=== PATIENT | male | born 1965 | race Caucasian/White ===

== ENCOUNTER 2019-04-02 12:34 | Observation (INO) | payer BC, OTHER ==
[~2019-04-02] VITALS: Ht 172.7 cm; Wt 112.5 kg
[~2019-04-02 12:34] MED LIST: CANA100T PO; GLIP5TAB4 PO; METO25TE2 PO
[2019-04-02 12:41] VITALS: BP 147/77
[2019-04-02] MEDS ORDERED: SODIUM CHLORIDE FLUSH 10 ML SYR IVF STA (12:43)
[2019-04-02] MEDS ORDERED: NITROGLYCERIN 0.4 MG TAB SL STA (12:43)
--- NOTE | 2019-04-02 12:55 | NUR ---
Pt w/c assisted to bed 1.
--- NOTE | 2019-04-02 13:05 | NUR ---
53/M C/O LEFT CHEST RADIATING TO LT POSTERIOR BACK X5 DAYS. PT DENIES SOB BUT DOES STATE INCREASED CP WITH DEEP INSPIRATION. PAIN HAS BEEN INTERMITTENT, NO EXACERBATION OR RELIEVING FACTORS. DENIES N/V, DIAPHORESIS. ERYTHEMATOUS RASH NOTED TO LT THORACIC ANTERIORLY AND POSTERIORLY. DOES NOT CROSS THE MIDLINE. STATES "I DON'T KNOW KNOW IF AN ANIMAL BIT ME BUT I DIDN'T SEE ANY ANIMAL". DENIES NUMBNESS, TINGLING, STABBING PAIN. JUST DESCRIBES PAIN SEVERE. HX HTN, DM, HIGH CHOLESTEROL
--- NOTE | 2019-04-02 13:56 | NUR ---
BLOOD DRAW AND URINE SAMPLE PICKED UP BY SWITCH TECHNICIAN.
[2019-04-02 14:17] LABS: APPEARANCE,URINE CLEAR (CLEAR); BILIRUBIN,URINE NEGATIVE (NEGATIVE); BLOOD, URINE NEGATIVE (NEGATIVE); COLOR,URINE YELLOW (YELLOW); LEUKOCYTE ESTERASE ,URINE NEGATIVE (NEGATIVE); NITRITE, URINE NEGATIVE (NEGATIVE); PH,URINE 5.5 (5.0-9.0); UGLUCOSE 3+ (NEGATIVE)
[2019-04-02 14:38] LABS: PROTHROMBIN TIME 9.8 secs (10.8-13.4)
[2019-04-02 14:40] LABS: D-DIMER < 100 ng/ml (0-400)
[2019-04-02] MEDS ORDERED: ATEN25TA7 PO (14:41)
[2019-04-02] MEDS ORDERED: SIMV40TA1 PO (14:41)
[2019-04-02 14:58] LABS: BARBITURATE, URINE NEGATIVE ng/ml (NEG <=200); BENZODIAZEPINE, URINE NEGATIVE ng/mL (NEG <=200); CANNABINOID, URINE NEGATIVE ng/mL (NEG <=50); COCAINE, URINE NEGATIVE ng/mL (NEG <=300); OPIATE, URINE NEGATIVE ng/mL (NEG <=2000); PHENCYCLIDINE SCREEN,URINE NEGATIVE ng/mL (NEG <=25)
[2019-04-02 15:29] LABS: BASOPHILS # (AUTO) 0.1 K/uL (0.00-0.22); BASOPHILS % (AUTO) 1.3 % (0.0-2.0); EOSINOPHILS # (AUTO) 0.2 K/uL (0-0.4); EOSINOPHILS % (AUTO) 2.9 % (0.0-4.0); HEMATOCRIT 51.1 % (36-52); HEMOGLOBIN 17.3 g/dL (12.0-18.0); LYMPHOCYTES # (AUTO) 2.1 K/uL (2.0-11.5); LYMPHOCYTES % (AUTO) 29.1 % (20.5-51.1); MEAN CORPUSCULAR HEMOGLOBIN 30 pg (27-31); MEAN CORPUSCULAR HGB CONC 34 g/dL (33-37); MEAN CORPUSCULAR VOLUME 87.2 fL (80-94); MONOCYTES # (AUTO) 1.2 K/uL (0.8-1.0); MONOCYTES % (AUTO) 15.8 % (1.7-9.3); NEUTROPHILS # (AUTO) 3.7 K/uL (1.8-7.7); NEUTROPHILS % (AUTO) 50.9 % (42.2-75.2); PLATELET COUNT (AUTO) 319 K/uL (140-450); RED BLOOD CELL COUNT(AUTO) 5.86 MIL/uL (4.20-6.10); RED CELL DISTRIBUTION WIDTH 12.9 % (11.6-13.7); WHITE BLOOD COUNT (AUTO) 7.4 K/uL (4.8-10.8)
--- NOTE | 2019-04-02 15:30 | NUR ---
ATTEMPTED TO CALL LAB REGARDINING CMP. NO ANSWER AT THIS TIME.
[2019-04-02 16:32] LABS: ANION GAP 17.8 (8-16); CARBON DIOXIDE 22.2 mmol/L (21-32); CREATININE 1.1 mg/dL (0.7-1.3)
--- NOTE | 2019-04-02 16:32 | NUR ---
NOTIFIED DR. APPLE PT C/O PAIN WOULD LIKE PAIN MED.
[2019-04-02] MEDS ORDERED: hydrOXYzine HCL 25 MG TAB PO ONE (16:35)
[2019-04-02] MEDS ORDERED: MORPHINE SULFATE 4 MG/ML SYR IVP ONE (16:35)
[2019-04-02] MEDS ORDERED: ONDANSETRON 4 MG/2 ML VIAL IVP ONE (16:35)
[2019-04-02] MEDS ORDERED: ACYCLOVIR 200 MG CAP PO ONE (16:35)
--- NOTE | 2019-04-02 16:35 | NUR ---
CALLED PCP JESSI MONTANA [phone] TO NOTIFY OF ADMISSION PER PT REQUEST. UNABLE TO DO SO; CLINIC CLOSED.
[2019-04-02 16:40] LABS: ALBUMIN 3.4 g/dL (3.4-5.0)
--- NOTE | 2019-04-02 18:05 | NUR ---
Patient will be admitted to care of DR. ESQUIVEL. Admited to TELE. Will go to room 113. Belongings list completed. Report to BERNADETTE ANTUNEZ.
--- NOTE | 2019-04-02 18:30 | NUR ---
PATIENT ARRIVED ON UNIT FROM ER. ABLE TO AMBULATE FROM ER BED TO [facility] BED. HAS LEFT CHEST RASH, NO VESICLES, NO CRUSTING, THAT IS FOLLOW A DERMATOME LINE. RASH ALSO PRESENT ON LEFT UPPER BACK, NO VESICLES, NO CRUSTING. PAINFUL UPON TOUCHING PER PATIENT REPORTS. DENIES PAIN AT THIS TIME. AAOX4, CALM, COOPERATIVE, SKIN COLOR APPROPRIATE TO ETHNICITY, WARM TO TOUCH. IV SITE INTACT, PATENT, AND SALINE LOCK. ORIENTED PATIENT TO ROOM AND CALL LIGHT. REVIEWED PLAN OF CARE WITH PATIENT. PATIENT VERBALIZED UNDERSTANDING. SAFETY MEASURES IN PLACE, CALL LIGHT WITHIN REACH. WILL CONTINUE TO MONITOR.
[2019-04-02] MEDS ORDERED: MORPHINE SULFATE 2 MG/ML SYR IVP PRN (18:50)
[2019-04-02] MEDS ORDERED: DEXTROSE 50% 50 ML SYR IVP PRN (18:50)
[2019-04-02] MEDS ORDERED: ACETAMINOPHEN 325 MG TAB PO PRN (18:50)
[2019-04-02] MEDS ORDERED: ONDANSETRON 4 MG/2 ML VIAL IVP PRN (18:50)
[2019-04-02] MEDS ORDERED: INSULIN LISPRO SLIDING SCALE 100 UNITS/ML VIAL SUBQ PRN (18:50)
[2019-04-02] MEDS ORDERED: NACL 0.9% 1,000 ML IV SCH (19:00)
--- NOTE | 2019-04-02 19:39 | NUR ---
GAVE REPORT TO COAL BRIQUETTE MACHINE OPERATOR NURSE FOR CONTINUITY OF CARE. PATIENT IN STABLE CONDITION.
--- NOTE | 2019-04-02 19:40 | NUR ---
RECEIVED REPORT FROM AM SHIFT NURSE. PATIENT ALERT AND ORIENTED X4. [place] SPEAKING BUT UNDERSTANDS AND SPEAKS TURKISH. NOTED WITH RASH ON LEFT CHEST AND LEFT UPPER BACK. NO VESICLES AND NO CRUSTING NOTED. DENIES PAIN NOR DISCOMFORT AT THIS TIME. PATIENT CALM AND COOPERATIVE. IV PATENT AND INTACT ON LEFT AC 20G. SALINE LOCKED. BED ON LOW POSITION. CALL LIGHT WITHIN REACH. INTRODUCED SELF AND UPDATED BOARD. SAFETY MEASURES IN PLACE. AMBULATORY TO THE BATHROOM. WILL CONTINUE TO MONITOR. PATIENT ARRIVED ON UNIT FROM ER. ABLE TO AMBULATE FROM ER BED TO [facility] BED. HAS LEFT CHEST RASH, NO VESICLES, NO CRUSTING, THAT IS FOLLOW A DERMATOME LINE. RASH ALSO PRESENT ON LEFT UPPER BACK, NO VESICLES, NO CRUSTING. PAINFUL UPON TOUCHING PER PATIENT REPORTS. DENIES PAIN AT THIS TIME. AAOX4, CALM, COOPERATIVE, SKIN COLOR APPROPRIATE TO ETHNICITY, WARM TO TOUCH. IV SITE INTACT, PATENT, AND SALINE LOCK. ORIENTED PATIENT TO ROOM AND CALL LIGHT. REVIEWED PLAN OF CARE WITH PATIENT. PATIENT VERBALIZED UNDERSTANDING. SAFETY MEASURES IN PLACE, CALL LIGHT WITHIN REACH. WILL CONTINUE TO MONITOR. Addendum: 04/02/19 at 8949 by Ta Tavares RN DISREGARD NOTE. NOTE INCOMPLETE.
--- NOTE | 2019-04-02 19:41 | NUR ---
RECEIVED REPORT FROM AM SHIFT NURSE. PATIENT ALERT AND ORIENTED X4. [place] SPEAKING BUT UNDERSTANDS AND SPEAKS [place]. NOTED WITH RASH ON LEFT CHEST AND LEFT UPPER BACK. NO VESICLES AND NO CRUSTING NOTED. DENIES PAIN NOR DISCOMFORT AT THIS TIME. PATIENT CALM AND COOPERATIVE. IV PATENT AND INTACT ON LEFT AC 20G. SALINE LOCKED. BED ON LOW POSITION. CALL LIGHT WITHIN REACH. INTRODUCED SELF AND UPDATED BOARD. SAFETY MEASURES IN PLACE. AMBULATORY TO THE BATHROOM. WILL CONTINUE TO MONITOR.
[2019-04-02 20:00] VITALS: BP 114/69
[2019-04-02] MEDS: BLOOD GLUCOSE MONITORING 1 DEV DEV FS SCH (20:22)
[2019-04-02] MEDS: HYDROcodone/APAP 7.5/325 MG 1 TAB PO PRN (20:23)
[2019-04-02] MEDS: ACYCLOVIR 200 MG CAP PO SCH (20:23)
--- NOTE | 2019-04-02 21:10 | NUR ---
PT SEEN BY RT. ASSESSMENT: HR 86, RR 16, SPO2 97% ON ROOM AIR, AND CLEAR BREATH SOUNDS. PT SAID HE HAS NO QUE AND REFUSED CPAP AFTER EXPLAINING THE IMPORTANCE OF THE DEVICE.
[2019-04-02] MEDS ORDERED: diphenhydrAMINE 50 MG CAP PO ONE (21:20)
--- NOTE | 2019-04-02 21:35 | NUR ---
ROUNDS DONE. PATIENT WATCHING TV. NO APPARENT DISTRESS NOTED. BED ON LOW POSITION. CALL LIGHT BUCK FISHER. WILL CONTINUE TO MONITOR.
[2019-04-02 22:37] LABS: CREATINE KINASE MB 0.4 ng/mL (0-3.6)
--- NOTE | 2019-04-02 23:30 | NUR ---
PATIENT AWAKE IN BED, WATCHING TV. NO RESPIRATORY DISTRESS NOTED. BED ON LOW POSITION. CALL LIGHT WITHIN REACH. WILL CONTINUE TO MONITOR.
[2019-04-03] VITALS: BP 117/70
--- NOTE | 2019-04-03 01:27 | NUR ---
ROUNDS DONE. PATIENT ASLEEP IN BED. NO APPARENT DISTRESS NOTED. VISIBLE CHEST RISE AND FALL NOTED. BED ON LOW POSITION. CALL LIGHT WITHIN REACH. WILL CONTINUE TO MONITOR.
[2019-04-03] MEDS: HYDROcodone/APAP 7.5/325 MG 1 TAB PO PRN ×2 (02:57→08:31)
--- NOTE | 2019-04-03 03:20 | NUR ---
PATIENT ASLEEP IN BED. NO DISTRESS NOTED. VISIBLE CHEST RISE AND FALL NOTED. BED ON LOW POSITION. CALL LIGHT WITHIN REACH. WILL CONTINUE TO MONITOR.
[2019-04-03 04:00] VITALS: BP 116/60
--- NOTE | 2019-04-03 05:09 | NUR ---
PATIENT ASLEEP IN BED. NO DISTRESS NOTED. VISIBLE CHEST RISE AND FALL NOTED. BED ON LOW POSITION. CALL LIGHT WITHIN REACH. WILL CONTINUE TO MONITOR.
[2019-04-03] MEDS: BLOOD GLUCOSE MONITORING 1 DEV DEV FS SCH (05:53)
--- NOTE | 2019-04-03 06:29 | NUR ---
ROUNDS DONE. PATIENT AWAKE IN BED, RESTING. DENIES PAIN NOR DISCOMFORT. NO APPARENT DISTRESS NOTED. BED ON LOW POSITION. CALL LIGHT WITHIN REACH. WILL CONTINUE TO MONITOR.
--- NOTE | 2019-04-03 06:51 | NUR ---
PATIENT HAS BEEN SCREENED AND CATEGORIZED MODERATE NUTRITION RISK. PATIENT WILL BE SEEN WITHIN 3-5 DAYS OF ADMISSION. 04/05/19-04/07/19 NICOLA ACEVES MS, RDN
--- NOTE | 2019-04-03 07:15 | NUR ---
ENDORSED PATIENT TO AM NURSE IN STABLE CONDITION FOR CONTINUITY OF CARE.
--- NOTE | 2019-04-03 07:16 | NUR ---
RECEIVED REPORT FROM HEALTH CONSULTANT NURSE AT BEDSIDE FOR CONTINUITY OF CARE. PATIENT ALERT AND ORIENTED X4. [place]UB[place] SPEAKING BUT UNDERSTANDS AND SPEAKS SUDANESE. WITH RASH ON LEFT CHEST AND LEFT UPPER BACK. NO VESICLES AND NO CRUSTING NOTED. C/O TOLERABLE PAIN AT THIS TIME. PATIENT CALM AND COOPERATIVE. IV PATENT AND INTACT ON LEFT AC 20G. INFUSING IVF WELL. UPDATED BOARD. SAFETY MEASURES IN PLACE. AMBULATORY TO THE BATHROOM BUT USES URINAL. BED ON LOW POSITION. CALL LIGHT WITHIN REACH. WILL CONTINUE TO MONITOR.
[2019-04-03 07:25] LABS: ALBUMIN 3.1 g/dL (3.4-5.0); ANION GAP 17.2 (8-16); CARBON DIOXIDE 24.2 mmol/L (21-32); POTASSIUM 4.2 mmol/L (3.5-5.1); TOTAL BILIRUBIN 0.5 mg/dL (0.0-1.0)
[2019-04-03 07:43] LABS: CREATINE KINASE MB 0.5 ng/mL (0-3.6)
[2019-04-03 08:00] VITALS: BP 124/72
[2019-04-03] MEDS: ACYCLOVIR 200 MG CAP PO SCH (08:27)
--- NOTE | 2019-04-03 08:31 | NUR ---
ORDERED MEDICATIONS GIVEN. PATIENT C/O 4/10 PAIN AT RASH SITE. MEDICATED WITH PRN PAIN MEDICATION. PATIENT TOLERATED THEM WELL. NO OTHER COMPLAINTS AT THIS TIME. SAFETY AND ISOLATION PRECAUTIONS IN PLACE, CALL LIGHT WITHIN REACH, WILL CONTINUE TO MONITOR PATIENT.
[2019-04-03] MEDS ORDERED: SIMVASTATIN 40 MG TAB PO SCH (09:00)
[2019-04-03] MEDS ORDERED: CANAGLIFLOZIN 300 MG PO SCH (09:00)
[2019-04-03] MEDS ORDERED: glipiZIDE 5 MG TAB PO SCH (09:00)
[2019-04-03] MEDS ORDERED: ATENOLOL 25 MG TAB PO SCH (09:00)
--- NOTE | 2019-04-03 09:05 | NUR ---
URINAL EMPTIED OF 300ML OF DARK YELLOW URINE. FAMILY AT BEDSIDE, INFORMED THEM OF CONTACT PRECAUTIONS AND PPE. THEY VERBALIZED UNDERSTANDING. SAFETY AND ISOLATION PRECAUTIONS IN PLACE, CALL LIGHT WITHIN REACH, WILL CONTINUE TO MONITOR PATIENT.
--- NOTE | 2019-04-03 10:57 | NUR ---
DR. ALVAREZ IN TO SEE THE PATIENT. FAMILY AT BEDSIDE. WILL WAIT FOR NEW ORDERS.
[2019-04-03] MEDS ORDERED: ACYC800T1 PO (11:11)
[2019-04-03] MEDS ORDERED: GABA100C PO (11:11)
[2019-04-03] MEDS ORDERED: HYDR-5122 PO (11:27)
--- NOTE | 2019-04-03 11:50 | NUR ---
DISCHARGE INSTRUCTIONS AND EDUCATION IN [place] GIVEN TO PATIENT AND FAMILY MEMBERS ABOUT MEDICATIONS, SIDE EFFECTS, TAKING PRESCRIPTIONS ORDERED AND FOLLOW UP WITH PCP AND TO ED IF ANY ABNORMAL S/S. THEY ALL VERBALIZED UNDERSTANDING. PRESCRIPTION AND MEDICATIONS EDUCATION GIVEN TO PATIENT AND FAMILY MEMBERS. ID BANDS CUT, IV REMOVED, IV CATHETER INTACT, MINIMAL BLEEDING NOTED. PATIENT WILL NOW CHANGE INTO OWN CLOTHING TO BE DISCHARGED HOME. WILL CONTINUE TO MONITOR PATIENT.
--- NOTE | 2019-04-03 11:55 | NUR ---
PATIENT AMBULATED OFF FLOOR TO BE DISCHARGED HOME WITH FAMILY MEMBERS. PATIENT TOOK ALL HIS BELONGINGS WITH HIM. PATIENT IN STABLE CONDITION.
== END 2019-04-03 11:55 | disposition home or self-care (01) ==
LOC: MED 12:34 → INTOOBSV 17:54 → MTU 17:54 → MED 18:04 → UNDODISOB 04-03 11:55
PROVIDERS: ADMIT Internal Medicine Pulmonary Disease; ATTEND Internal Medicine Pulmonary Disease
DX: B02.9 Zoster without complications (principal); E11.9 Type 2 diabetes mellitus without complications; I95.9 Hypotension, unspecified; I10 Essential (primary) hypertension; E78.5 Hyperlipidemia, unspecified; E66.9 Obesity, unspecified; Z79.899 Other long term (current) drug therapy
CPT/HCPCS: 36415; 71045; 71250; 80048; 80053; 80305; 81003; 82550; 82553; 82948; 83735; 84484; 85025; 85379; 85610; 86140; 87081; 93005; 94760; 96361; 96372; 96374; 96375; 99285; G0378; J2270; J2405; J7030; Q0092; Q0163

== ENCOUNTER 2022-07-07 11:18 | Inpatient (IN) | payer OTHER ==
[~2022-07-07] VITALS: Ht 152.4 cm; Wt 49.4 kg
[~2022-07-07 11:18] MED LIST changes: +ACYC-279 PO; +ATEN25TA7 PO; +GABA100C PO; +GLIP5TAB14 PO; -GLIP5TAB4 PO; +HYDR-5122 PO; +SIMV40TA1 PO
[2022-07-07 11:22] VITALS: BP 140/78
--- NOTE | 2022-07-07 12:13 | NUR ---
56 Y/O MALE BIB C/O LEFT LEG PAIN X3 MONTHS, NOTED ULCERATION ON THE INNER PORTION OF THE LOWER LEG, PER PT HE HAS BEEN TAKING AMPICILLIN. BS 322 AT THIS TIME NKA PMH: DM, HTN, HDL
--- NOTE | 2022-07-07 12:34 | NUR ---
PT TAKEN TO XRAY VIA WHEELCHAIR
--- NOTE | 2022-07-07 12:37 | NUR ---
WOUND TO L ANTERIOR CALF IRRIGATED
--- NOTE | 2022-07-07 12:40 | NUR ---
PT BROUGHT BACK VIA WHEELCHAIR
[2022-07-07 13:05] LABS: BASOPHILS # (AUTO) 0.1 K/uL (0.00-0.22); BASOPHILS % (AUTO) 1.5 % (0.0-2.0); EOSINOPHILS # (AUTO) 0.3 K/uL (0-0.4); EOSINOPHILS % (AUTO) 2.8 % (0.0-4.0); HEMATOCRIT 52.1 % (36-52); HEMOGLOBIN 17.6 g/dL (12.0-18.0); LYMPHOCYTES # (AUTO) 2.6 K/uL (2.0-11.5); LYMPHOCYTES % (AUTO) 28.9 % (20.5-51.1); MEAN CORPUSCULAR HEMOGLOBIN 30 pg (27-31); MEAN CORPUSCULAR HGB CONC 34 g/dL (33-37); MEAN CORPUSCULAR VOLUME 87.7 fL (80-94); NEUTROPHILS % (AUTO) 55.8 % (42.2-75.2); PLATELET COUNT (AUTO) 302 K/uL (140-450); RED BLOOD CELL COUNT(AUTO) 5.94 MIL/uL (4.20-6.10)
[2022-07-07 13:19] LABS: ANION GAP 14.3 (8-16); CARBON DIOXIDE 24.4 mmol/L (21-32); POTASSIUM 3.7 mmol/L (3.5-5.1)
[2022-07-07] MEDS ORDERED: VANCOMYCIN 1,000 MG in DEXTROSE 5% 250 ML IV ONE (14:50)
[2022-07-07] MEDS ORDERED: PIPERACILLIN/TAZOBACTAM 3.375 GM in DEXTROSE 5% 50 ML IV ONE (14:50)
[2022-07-07] MEDS ORDERED: NACL 0.9% 1,000 ML IV ONE (14:50)
--- NOTE | 2022-07-07 15:10 | NUR ---
PT AMB W/ CANE TO BED 4
--- NOTE | 2022-07-07 15:18 | NUR ---
pt swabbed for covid(gretchen). walked and handed to lab
[2022-07-07 15:23] LABS: APPEARANCE,URINE CLEAR (CLEAR); BILIRUBIN,URINE NEGATIVE (NEGATIVE); BLOOD, URINE NEGATIVE (NEGATIVE); COLOR,URINE YELLOW (YELLOW); LEUKOCYTE ESTERASE ,URINE NEGATIVE (NEGATIVE); NITRITE, URINE NEGATIVE (NEGATIVE); UGLUCOSE 3+ (NEGATIVE)
[2022-07-07] MEDS ORDERED: DOXE25CA PO (15:25)
[2022-07-07] MEDS ORDERED: HYDROcodone/APAP 7.5/325 MG 1 TAB PO PRN (15:25)
[2022-07-07] MEDS ORDERED: FENO145T26 PO (15:25)
[2022-07-07] MEDS ORDERED: ASPI-1822 PO (15:25)
[2022-07-07] MEDS ORDERED: guaiFENesin DM 200/20 MG-10 ML 10 ML UDC PO PRN (15:25)
[2022-07-07] MEDS ORDERED: GLIP10TA12 PO (15:25)
[2022-07-07] MEDS ORDERED: DOCUSATE SODIUM 100 MG GELCAP PO PRN (15:25)
[2022-07-07] MEDS ORDERED: CANA300T PO (15:25)
[2022-07-07] MEDS ORDERED: HYDR25TA32 PO (15:25)
[2022-07-07] MEDS ORDERED: ACETAMINOPHEN 325 MG TAB PO PRN (15:25)
[2022-07-07] MEDS ORDERED: BENA20TA89 PO (15:25)
[2022-07-07] MEDS ORDERED: POTASSIUM CHLORIDE 10 MEQ TABER PO PRN (15:25)
[2022-07-07] MEDS ORDERED: ATOR40TA40 PO (15:25)
[2022-07-07] MEDS ORDERED: ONDANSETRON 4 MG/2 ML VIAL IM/IVP PRN (15:25)
[2022-07-07] MEDS ORDERED: VANCOMYCIN 1,000 MG VIAL ONE (15:35)
[2022-07-07] MEDS ORDERED: PIPERACILLIN/TAZOBACTAM 3.375 GM VIAL IV ONE (15:35)
[2022-07-07 16:09] LABS: PHOSPHORUS 3.2 mg/dL (2.5-4.9)
--- NOTE | 2022-07-07 18:32 | NUR ---
HARINDER UPDATED ON PT STATUS
--- NOTE | 2022-07-07 19:00 | NUR ---
PT IS SERBIAN SPEAKER. AMBULATORY. ALERT AND ORIENTED X4. ROOM AIR.
--- NOTE | 2022-07-07 19:32 | NUR ---
PT WENT TO REST ROOM.
[2022-07-08] MEDS: ZOLPIDEM 5 MG TAB PO PRN ×2 (00:50→21:14)
[2022-07-08 05:38] LABS: BASOPHILS # (AUTO) 0.1 K/uL (0.00-0.22); BASOPHILS % (AUTO) 1.2 % (0.0-2.0); EOSINOPHILS # (AUTO) 0.4 K/uL (0-0.4); EOSINOPHILS % (AUTO) 4.3 % (0.0-4.0); HEMATOCRIT 47.4 % (36-52); HEMOGLOBIN 15.8 g/dL (12.0-18.0); LYMPHOCYTES # (AUTO) 3.5 K/uL (2.0-11.5); LYMPHOCYTES % (AUTO) 41.5 % (20.5-51.1); MEAN CORPUSCULAR HEMOGLOBIN 29 pg (27-31); MEAN CORPUSCULAR HGB CONC 33 g/dL (33-37); MEAN CORPUSCULAR VOLUME 88.1 fL (80-94); MONOCYTES # (AUTO) 1.1 K/uL (0.8-1.0); MONOCYTES % (AUTO) 13.7 % (1.7-9.3); NEUTROPHILS # (AUTO) 3.3 K/uL (1.8-7.7); NEUTROPHILS % (AUTO) 39.3 % (42.2-75.2); PLATELET COUNT (AUTO) 301 K/uL (140-450); RED BLOOD CELL COUNT(AUTO) 5.38 MIL/uL (4.20-6.10); RED CELL DISTRIBUTION WIDTH 13.2 % (11.6-13.7); WHITE BLOOD COUNT (AUTO) 8.3 K/uL (4.8-10.8)
[2022-07-08 06:13] LABS: ANION GAP 14.8 (8-16); POTASSIUM 3.8 mmol/L (3.5-5.1)
--- NOTE | 2022-07-08 08:17 | NUR ---
RECIEVED PATIENT FROM ER NURSE.ADMITTED WITH COMPLAINS OF LEG PAIN.VITALS ARE STABLE.ALL SAFETY MEASURES IN PLACE.POC DISCUSSED.ADMITTED TO BED 121 B.
--- NOTE | 2022-07-08 09:47 | NUR ---
PATIENT HAS BEEN SCREENED AND CATEGORIZED MODERATE NUTRITION RISK. PATIENT WILL BE SEEN WITHIN 3-5 DAYS OF ADMISSION. REVIEWED BY PETTY NETTLES RD
[2022-07-08] MEDS: PANTOPRAZOLE 40 MG TABEC PO SCH (09:54)
[2022-07-08 16:00] VITALS: BP 114/66
--- NOTE | 2022-07-08 19:40 | NUR ---
ENDORSED PATIENT TO PHARMACIST HELPER NURSE.POC ENDORSED.NO SIGNS OF DISTRESS NOTED.
--- NOTE | 2022-07-08 19:40 | NUR ---
RECEIVED PT IN BED, AWAKE,ALERT AND ORIENTED. FAMILY MEMBERS AT THE BEDSIDE. DENIES PAIN. DENIES SHORTNESS OF BREATH. SKIN WARM AND DRY TO TOUCH. SAFETY PRECAUTIONS IN PLACE, CALL LIGHT IN REACH.
[2022-07-09] VITALS: BP 124/61
[2022-07-09 05:14] LABS: BASOPHILS # (AUTO) 0.2 K/uL (0.00-0.22); BASOPHILS % (AUTO) 2.1 % (0.0-2.0); EOSINOPHILS # (AUTO) 0.4 K/uL (0-0.4); EOSINOPHILS % (AUTO) 4.6 % (0.0-4.0); HEMATOCRIT 48.6 % (36-52); HEMOGLOBIN 16.3 g/dL (12.0-18.0); LYMPHOCYTES # (AUTO) 3.2 K/uL (2.0-11.5); LYMPHOCYTES % (AUTO) 40.8 % (20.5-51.1); MEAN CORPUSCULAR HEMOGLOBIN 30 pg (27-31); MEAN CORPUSCULAR HGB CONC 34 g/dL (33-37); MEAN CORPUSCULAR VOLUME 88.1 fL (80-94); MONOCYTES % (AUTO) 12.8 % (1.7-9.3); NEUTROPHILS # (AUTO) 3.1 K/uL (1.8-7.7); NEUTROPHILS % (AUTO) 39.7 % (42.2-75.2); PLATELET COUNT (AUTO) 307 K/uL (140-450); RED BLOOD CELL COUNT(AUTO) 5.51 MIL/uL (4.20-6.10); RED CELL DISTRIBUTION WIDTH 13.1 % (11.6-13.7); WHITE BLOOD COUNT (AUTO) 7.8 K/uL (4.8-10.8)
[2022-07-09 05:28] LABS: ANION GAP 14.1 (8-16); POTASSIUM 4.1 mmol/L (3.5-5.1)
--- NOTE | 2022-07-09 06:29 | NUR ---
PT IS ASLEEP. NO ACUTE RESPIRATORY DISTRESS. ALL NEEDS ATTENDED TO. SAFETY PRECAUTIONS MAINTAINED DURING THE SHIFT, CALL LIGHT PLACED WITHIN REACH.
--- NOTE | 2022-07-09 07:35 | NUR ---
GOT REPORT FROM THE NIGHT NURSE, PT AWAKE .[id number]
[2022-07-09 08:00] VITALS: BP 119/78
[2022-07-09] MEDS: PANTOPRAZOLE 40 MG TABEC PO SCH (09:00)
--- NOTE | 2022-07-09 12:18 | NUR ---
WOUND CARE NOTE: PT. ADMITTED WITH LLE CELLULITIS, NO OPEN SKIN , 5X7 CM ABRASIONS TO LOWER ANTERIOR LEG. HARJINDER WOUND SKIN DRY LIGHT ERYTHEMA WITH DIFFUSED COLOR PURPLE, NO INDURATION, PAIN 0/10. POC DISCUSSED WITH PT. PT VERBALIZES UNDERSTANDING. POC DISCUSSED WITH PRIMARY RN CARLOS. RECOMMENDATIONS: -CLEANSE LLE WOUND WITH NS, PAT DRY, APPLY HYDROCOLLOID DRESSING CHANGE EVERY 3 DAYS AND PRN IF SOILING.
[2022-07-09] MEDS ORDERED: HYDROCOLLOID DRESSING TP PRN (12:30)
[2022-07-09] MEDS ORDERED: INSULIN LISPRO SLIDING SCALE 100 UNITS/ML VIAL SUBQ PRN (12:50)
[2022-07-09] MEDS ORDERED: DEXTROSE 50% 50 ML SYR IVP PRN ×2 (12:50→15:45)
[2022-07-09 15:37] VITALS: BP 124/86
[2022-07-09] MEDS ORDERED: BLOOD GLUCOSE MONITORING 1 DEV DEV FS SCH (16:30)
[2022-07-09] MEDS: INSULIN LISPRO SLIDING SCALE 100 UNITS/ML VIAL SUBQ PRN ×2 (16:38→20:47)
[2022-07-09] MEDS: BLOOD GLUCOSE MONITORING 1 DEV DEV FS SCH ×2 (16:39→20:45)
[2022-07-09] MEDS: glipiZIDE 10 MG TAB PO SCH (16:41)
[2022-07-09] MEDS ORDERED: VANCOMYCIN PER PHARMACY MC PRN (18:40)
[2022-07-09] MEDS ORDERED: VANCOMYCIN 1,000 MG in NACL 0.9% 250 ML IV SCH (19:00)
--- NOTE | 2022-07-09 19:30 | NUR ---
RECEIVED PT IN BED, AWAKE, ALERT AND ORIENTED X4. DENIES PAIN. NO DISTRESS NOTED. SKIN WARM AND DRY TO TOUCH. SAFETY PRECAUTION IN PLACE, CALL LIGHT IN REACH.
[2022-07-09] MEDS ORDERED: DOXEPIN 25 MG CAP PO SCH (21:00)
[2022-07-09] MEDS: ZOLPIDEM 5 MG TAB PO PRN (21:46)
[2022-07-09 23:57] VITALS: BP 74/86
[2022-07-10 05:43] LABS: BASOPHILS # (AUTO) 0.1 K/uL (0.00-0.22); BASOPHILS % (AUTO) 1.9 % (0.0-2.0); EOSINOPHILS # (AUTO) 0.4 K/uL (0-0.4); EOSINOPHILS % (AUTO) 5.3 % (0.0-4.0); HEMATOCRIT 47.6 % (36-52); HEMOGLOBIN 16.3 g/dL (12.0-18.0); LYMPHOCYTES % (AUTO) 41.4 % (20.5-51.1); MEAN CORPUSCULAR HEMOGLOBIN 30 pg (27-31); MEAN CORPUSCULAR HGB CONC 34 g/dL (33-37); MEAN CORPUSCULAR VOLUME 86.7 fL (80-94); MONOCYTES # (AUTO) 0.9 K/uL (0.8-1.0); MONOCYTES % (AUTO) 12.6 % (1.7-9.3); NEUTROPHILS # (AUTO) 2.8 K/uL (1.8-7.7); NEUTROPHILS % (AUTO) 38.8 % (42.2-75.2); PLATELET COUNT (AUTO) 305 K/uL (140-450); RED BLOOD CELL COUNT(AUTO) 5.49 MIL/uL (4.20-6.10); RED CELL DISTRIBUTION WIDTH 12.9 % (11.6-13.7); WHITE BLOOD COUNT (AUTO) 7.3 K/uL (4.8-10.8)
[2022-07-10 06:19] LABS: CARBON DIOXIDE 23.4 mmol/L (21-32); CREATININE 0.8 mg/dL (0.6-1.3); POTASSIUM 3.4 mmol/L (3.5-5.1)
[2022-07-10] MEDS: glipiZIDE 10 MG TAB PO SCH (06:31)
[2022-07-10] MEDS: BLOOD GLUCOSE MONITORING 1 DEV DEV FS SCH ×2 (06:31→11:13)
[2022-07-10] MEDS: INSULIN LISPRO SLIDING SCALE 100 UNITS/ML VIAL SUBQ PRN ×2 (06:32→11:17)
--- NOTE | 2022-07-10 06:37 | NUR ---
PROVIDED WARM BLANKET. DENIES PAIN. ALL NEEDS ATTENDED TO. SAFETY PRECAUTION IN PLACE, CALL LIGHT IN REACH.
[2022-07-10] MEDS: PANTOPRAZOLE 40 MG TABEC PO SCH (08:51)
[2022-07-10] MEDS ORDERED: ASPIRIN 81 MG TAB.CHEW PO SCH (09:00)
[2022-07-10] MEDS ORDERED: BENAZEPRIL 20 MG TAB PO SCH (09:00)
[2022-07-10] MEDS ORDERED: hydroCHLOROthiazide 25 MG TAB PO SCH (09:00)
[2022-07-10] MEDS ORDERED: atenoloL 25 MG TAB PO SCH (09:00)
--- NOTE | 2022-07-10 09:05 | NUR ---
DC PLANNING ASSESSMENT COMPLETE PLEASE REFER TO ASSESSMENT FOR DETAILS PT REPORTS DC PLAN IS TO RETURN HOME W/ FAMILY PROVIDING TRANSPORTATION, WHEN MEDICALLY STABLE Addendum: 07/10/22 at 0906 by Fer RUBIO Amended: Links added.
[2022-07-10] MEDS ORDERED: CLIN300C2 PO (10:56)
[2022-07-10 11:03] VITALS: BP 132/85
--- NOTE | 2022-07-10 11:54 | NUR ---
PATIENT DISCHARGE WITH A COPY OF DISCHARGE INSTRUCTIONS, TWO DRESSINGS AND GAUZE TO ASSIST UNTIL WOUND CAN HEAL. PATIENT VERBALIZES UNDERSTANDING OF TEACHING, CLEANING WOUND WITH MILD SOAP AND WATER AND USING A NEW TOWEL TO DRY. PATIENT AWARE OF RISKS INCLUDING AND UP TO SURGICAL AMPUTATION IF WOUND IS NOT CLOSING OR GETS SECONDARY INFECTION AND COMPLICATIONS FROM DIABETES. INTACT TWENTY GAUGE IV CATHETER TIP REMOVAL FROM RIGHT ANTECUBITAL SPACE. IDENTIFICATION BRACELET REMOVAL. PATIENT AMBULATING ON HIS OWN WITH FAMILY PRESENT TO TRANSPORT HIM TO HIS HOME.
[2022-07-12] MEDS ORDERED: HYDROCOLLOID DRESSING TP SCH (13:00)
== END 2022-07-10 15:54 | disposition home or self-care (01) | DRG 383 ==
LOC: MED 11:18 → MMU 15:27 → MTU 07-08 05:22
PROVIDERS: ADMIT Student in an Organized Health Care Education/Training Program; ATTEND Student in an Organized Health Care Education/Training Program
DX: L03.116 Cellulitis of left lower limb (principal); E87.1 Hypo-osmolality and hyponatremia; I87.2 Venous insufficiency (chronic) (peripheral); E11.9 Type 2 diabetes mellitus without complications; E78.5 Hyperlipidemia, unspecified; Z20.822 Contact with and (suspected) exposure to COVID-19; I10 Essential (primary) hypertension; Z79.82 Long term (current) use of aspirin; Z79.891 Long term (current) use of opiate analgesic; Z79.899 Other long term (current) drug therapy
CPT/HCPCS: 36415; 73590; 80048; 81003; 82150; 82948; 83735; 83880; 84100; 85025; 85610; 85730; 87040; 87081; 93005; 93925; 93970; 96365; 96375; 97116; 97163-GP; 99285; J1644; J1815; J2543; J3370; J7030; Q0092

== ENCOUNTER 2023-04-13 12:53 | Emergency (ER) | payer OTHER ==
[~2023-04-13] VITALS: Ht 162.6 cm; Wt 90.7 kg
[~2023-04-13 12:53] MED LIST changes: -ACYC-279 PO; +ASPI-1822 PO; +ATOR40TA40 PO; +BENA20TA89 PO; -CANA100T PO; +CANA300T PO; +CLIN300C2 PO; +DOXE25CA PO; +FENO145T26 PO; -GABA100C PO; +GLIP10TA12 PO; -GLIP5TAB14 PO; +HYDR25TA32 PO; -METO25TE2 PO; -SIMV40TA1 PO
[2023-04-13 13:31] VITALS: BP 141/91; PULSE 73; RESP 18; TEMP 97; O2SAT 98
[2023-04-13] MEDS ORDERED: FLUC150T PO (14:10)
[2023-04-13] MEDS ORDERED: CEPH-588 PO (14:10)
[2023-04-13 14:12] VITALS: O2SAT 98
== END 2023-04-13 14:21 | disposition home or self-care (01) ==
LOC: MED 12:53
DX: N47.6 Balanoposthitis (principal); E11.9 Type 2 diabetes mellitus without complications; I10 Essential (primary) hypertension; Z79.899 Other long term (current) drug therapy; Z79.2 Long term (current) use of antibiotics; Z79.82 Long term (current) use of aspirin
CPT/HCPCS: 99283